=== PATIENT | male | born 1945 | race Caucasian/White ===

== ENCOUNTER 2025-02-26 10:11 | Emergency (ER) | payer OTHER, SELFPAY ==
[2025-02-26] VITALS (7 sets, daily range): BP systolic 149–164; BP diastolic 58–96; PULSE 54–90; RESP 18–20; TEMP 36.4; O2SAT 86–100
--- NOTE | ~2025-02-26 | XR_ITS ---
Examination: XR chest 2V Clinical History: dyspnea Comparison: None Technique: PA and Lateral Findings: Cardiomediastinal silhouette normal size and configuration. Small left pleural effusion. Minimal interstitial markings. No acute bony abnormality. IMPRESSION: 1. Small left pleural effusion. 2. Minimal interstitial pulmonary edema and/or pneumonitis possible. Reviewed, dictated and finalized at location [facility]
--- NOTE | 2025-02-26 10:15 | ECG_ITS ---
Test Date: 2025-02-26 10:48:00 Measurements Intervals [place] Rate: 54 P: 0 WA: 0 QRS: -63 QRSD: 134 T: 1 QT: 463 QTc: 440 Interpretive Statements SINUS RHYTHM WITH FIRST DEGREE AV BLOCK RIGHT BUNDLE BRANCH BLOCK LEFT ANTERIOR FASCICULAR BLOCK BASELINE ARTIFACT- I, III, AVR, AVL, AVF, V4-V6 ABNORMAL ECG No previous ECG available for comparison Electronically Signed On 02-26-2025 19:33:47 OBSTETRICAL ANESTHESIOLOGIST by Nasir Fierro D.O.
--- OUTSIDE RECORDS SUMMARY | 2025-02-26 10:39 | XMS_ITS ---
Author Organization Unknown ENCOUNTERS Encounter Performer Location Date Diagnosis Diagnosis Status Pre Admit [place] [id number] [place] [address] [id number] Emergency [facility] [address] [place] [address] [id number] *Note: Encounters from your own facility or health system may be excluded. Allergies, Adverse Reactions, Alerts Allergen Type Severity Identification Date Medications Name Date Quantity Days Supplied GPI Number
[2025-02-26] MEDS: IPRATROPIUM 0.5 MG/ALBUTEROL SULFATE 2.5 MG (BASE) AMPUL.NEB 3 ML INHALATION ×2 (10:50→13:05)
--- NOTE | 2025-02-26 10:58 | ED_ITS ---
HPI - SOB/Dyspnea General Chief Complaint: Shortness of Breath/Dyspnea Stated Complaint: sob Time Seen by Provider: 02/26/25 10:24 History of Present Illness HPI Narrative: Patient is a 79-year-old male who presents to the ER with shortness of breath. Has had a cough for approximately a week but is significantly worsened over last 3-4 days. He cannot exert himself due to significant dyspnea. Found to be hypoxic here. He does have a cough that is productive. Started having fevers today. No chest pain or chest pressure. Typically gets his care at the [facility]. Related Data Allergies Allergy/AdvReac Type Severity Reaction Status Date / Time NKDA Allergy Unknown Uncoded 08/25/02 15:04 NKFA Allergy Unknown Uncoded 08/25/02 15:04 Review of Systems 2 Review of Systems: All systems reviewed & are unremarkable except as noted in HPI and below Constitutional: Constitutional: Reports no additional constitutional complaints ENT: Reports system reviewed and no additional complaints, except as documented Cardiovascular: Cardiovascular: Reports no additional cardiovascular complaints Respiratory: Respiratory: Reports no additional respiratory complaints Gastrointestinal: Gastrointestinal: Reports no additional gastrointestinal complaints [facility] Past Medical History Medical History (Updated 02/26/25 @ 16:20 by Antonio Guillaume MD) Hyperlipidemia Diabetes Hypertension Exam 2 Narrative: GENERAL: Fatigued-appearing, well-nourished, and in no acute distress. HEAD: Normocephalic, atraumatic. ENT: Mucous membranes moist. NECK: Supple. CHEST: Basilar rales right greater than left. No respiratory distress. HEART: Regular rate and rhythm. Normal peripheral pulses. ABDOMEN: Soft, nontender, nondistended. EXTREMITIES: Normal range of motion. No edema. SKIN: Warm, dry, no rash. NEURO: Alert and oriented x3. PSYCH: Normal mood and affect. Course Course Emergency Course: 1428: Patient ambulatory without hypoxia after 2 breathing treatments but still sounds a bit junky. He will be given another breathing treatment as well as steroid. White blood cell count normal. Mild anemia of 10.8. Creatinine slightly elevated 1.62. BNP 816. Negative troponin. Likely will be appropriate for discharge home. 1617: No wheezing, there are a lot of referred lung sounds from upper airway. No hypoxia after a long nebulizer treatment. Discharge home with steroids. Will also prescribe nebulizer and DuoNeb. X-ray with possible pneumonitis would also give antibiotics. Vital Signs Vital signs: Vital Signs Temperature 97.6 F 02/26/25 10:12 Pulse Rate 90 02/26/25 10:12 Respiratory Rate 20 02/26/25 10:12 Blood Pressure 155/96 H 02/26/25 10:12 Pulse Oximetry 86 L 02/26/25 10:12 Oxygen Delivery Room Air 02/26/25 10:12 Temperature 97.6 F 02/26/25 10:12 Pulse Rate 67 02/26/25 16:17 Respiratory Rate 18 02/26/25 16:17 Blood Pressure 164/75 H 02/26/25 15:18 Pulse Oximetry 100 02/26/25 15:18 Oxygen Delivery Room Air 02/26/25 12:00 MDM Differential Diagnosis Differential Diagnosis: Pneumonia, pneumothorax, COVID, influenza, pulmonary edema, ACS Medical Records I have reviewed the following patient records and this information was taken into consideration when formulating the assessment and plan.: previous clinic visits (Home medication sheet he brought with him) Lab Data MDM Lab Attestation statement: I personally reviewed the patient's lab results. 02/26/25 11:42 02/26/25 11:42 Labs: Lab Results 02/26/25 02/26/25 02/26/25 Range/Units 11:42 11:43 12:06 WBC 6.6 (4.5-10.0) K/mm3 RBC 3.84 L (4.6-6.20) M/mm3 Hgb 10.8 L (14.0-18.0) g/dL Hct 35.3 L (42.0-52.0) % MCV 91.9 (80-100) fl MCH 28.1 (26-34) pg MCHC 30.6 L (32-36) g/dl RDW 15.2 H (11.5-14.5) % Plt Count 218 (150-375) k/mm3 MPV 11.2 H (7.4-10.4) fl Immature Gran % (Auto) 0.3 (0-0.5) % Neut % (Auto) 78.3 H (45.5-73.1) % Lymph % (Auto) 8.4 L (18.3-44.2) % [place] % (Auto) 11.3 H (2.6-8.5) % Eos % (Auto) 0.9 (0-4.4) % Baso % (Auto) 0.8 (0.2-1.2) % Lymph # (Auto) 0.56 L (0.9-3.2) K/mm3 [place] # (Auto) 0.8 H (0.1-0.6) K/mm3 Eos # (Auto) 0.1 (0-0.3) K/mm3 Baso # (Auto) 0.1 (0.0-0.1) K/mm3 Abs Immat Gran (auto) 0.02 (0.00-0.031) K/mm3 Absolute Neuts (auto) 5.2 (1.3-6.7) K/mm3 Absolute Nucleated RBC 0.000 (0.0-0.012) K/mm3 Nucleated RBC % 0.0 (0.0-0.2) % PT 14.1 (11.1-14.7) Seconds INR 1.1 APTT 22.7 (22.3-36.8) Seconds Sodium 141 (137-145) mmol/L Potassium 4.1 (3.4-5.0) mmol/L Chloride 109 H (98-107) mmol/L Carbon Dioxide 24 (22-30) mmol/L Anion Gap 8 (4-12) mmol/L BUN 22 H (9-20) mg/dL Creatinine 1.62 H (0.7-1.3) mg/dL Estim Creat Clear Calc 39 ml/min Estimated GFR 41 L (59 - ) Glucose 131 H (65-110) mg/dL Lactic Acid 1.5 (0.7-2.0) mmol/L Calcium 8.9 (8.4-10.2) mg/dL Total Bilirubin 0.7 (0.2-1.3) mg/dL AST 42 (17-59) U/L ALT 35 (6-50) U/L Alkaline Phosphatase 125 (38-126) U/L Troponin I 0.020 (0.000-0.034) ng/mL NT-Pro-B Natriuret Pep 816 H (19.9-100) pg/mL Total Protein 8.2 (6.3-8.2) g/dL Albumin 4.1 (3.5-5.1) g/dL Imaging Data Radiologist's impression: ITS Impressions Chest X-Ray 02/26/25 11:27 IMPRESSION: 1. Small left pleural effusion. 2. Minimal interstitial pulmonary edema and/or pneumonitis possible. Discharge Plan Discharge Clinical Impression: Bronchitis Patient Disposition: Home Condition: Stable Instructions: Antibiotic Form, Acute Bronchitis (ED) Additional Instructions: Please return to the emergency department if you develop severe and persistent chest pain, difficulty breathing, dizziness, leg swelling or if you are coughing up blood as these can be signs of a medical emergency. Please call your doctor for a follow up appointment to determine the need for further testing. Use the inhaler if you cannot obtain the nebulizer. Patient Language: Eritre[place] Prescriptions: New prednisone 20 mg tablet 40 mg PO DAILY 5 Days Qty: 10 0RF (DME) nebulizers [facility] See Rx Instructions .Route Qty: 1 0RF Rx Instructions: As directed ipratropium-albuterol 0.5 mg-3 mg(2.5 mg base)/3 mL solution for nebulization 3 ml inhalation QID PRN (Reason: shortness of breath) Qty: 90 0RF azithromycin 250 mg tablet See Rx Instructions PO .COMPLEX Qty: 6 0RF Rx Instructions: take 500 mg today (day 1), then 250 mg for 4 days (days 2-5) albuterol sulfate 90 mcg/actuation HFA aerosol inhaler 2 puff inhalation QID PRN (Reason: shortness of breath or wheezing) Qty: 8.5 0RF Follow-up/Referrals: PHYSICIAN NOT ON STAFF,NONSTAFF [Primary Care Provider] - 1 Week
[2025-02-26 11:55] LABS: Hematocrit 35.3 % (42.0-52.0); Hemoglobin 10.8 g/dL (14.0-18.0); Immature Granulocyte Percent A 0.3 % (0-0.5); Lymphocytes Absolute Auto 0.56 K/mm3 (0.9-3.2); Mean Corpuscular HGB Conc 30.6 g/dl (32-36); Mean Corpuscular Hemoglobin 28.1 pg (26-34); Mean Corpuscular Volume 91.9 fl (80-100); Nucleated Red Blood Cells Absolute Auto 0.000 K/mm3 (0.0-0.012); Nucleated Red Blood Cells Perc 0.0 % (0.0-0.2); Platelet Count Result 218 k/mm3 (150-375); Red Blood Count 3.84 M/mm3 (4.6-6.20); White Blood Count 6.6 K/mm3 (4.5-10.0)
[2025-02-26 12:11] LABS: Alanine Aminotransferase 35 U/L (6-50); Albumin Level 4.1 g/dL (3.5-5.1); Alkaline Phosphatase 125 U/L (38-126); Anion Gap 8 mmol/L (4-12); Aspartate Amino Transferase 42 U/L (17-59); Bilirubin,Total 0.7 mg/dL (0.2-1.3); Blood Urea Nitrogen 22 mg/dL (9-20); Calcium 8.9 mg/dL (8.4-10.2); Carbon Dioxide 24 mmol/L (22-30); Chloride 109 mmol/L (98-107); Estimated CRCL calculation 39 ml/min; Estimated Glomerular Filt Rate 41; Glucose 131 mg/dL (65-110); Potassium 4.1 mmol/L (3.4-5.0); Sodium 141 mmol/L (137-145); Total Protein 8.2 g/dL (6.3-8.2)
[2025-02-26 12:22] LABS: NT Pro B Type Natriuretic Pept 816 pg/mL (19.9-100); Troponin I 0.020 ng/mL (0.000-0.034)
[2025-02-26 12:25] LABS: INR 1.1; Prothrombin Time 14.1 Seconds (11.1-14.7)
[2025-02-26 12:26] LABS: Partial Thromboplastin Time 22.7 Seconds (22.3-36.8)
[2025-02-26] MEDS: ALBUTEROL SULFATE NEB 2.5 MG/3 ML INH 10 MG INHALATION (15:11)
[2025-02-26] MEDS: IPRATROPIUM BR 0.02% INH SOLN 0.5 MG/2.5 ML VIAL 1 MG INHALATION (15:11)
== END 2025-02-26 16:38 | disposition home or self-care (01) ==
PROVIDERS: Emergency Provider Emergency Medicine
DX: J40 Bronchitis, not specified as acute or chronic (principal); E78.5 Hyperlipidemia, unspecified; I10 Essential (primary) hypertension; E11.9 Type 2 diabetes mellitus without complications
CPT/HCPCS: 36415; 71046; 80053; 83605; 83880; 84484; 85025; 85610; 85730; 93005; 94640; 99284; J7512